=== PATIENT | female | born 1975 | race Caucasian/White ===

== ENCOUNTER → 2016-08-24 | Outpatient (CLI) | payer OTHER ==
--- NOTE | 2016-08-24 13:07 | MA ---
Screening Digital Mammogram With iCAD Analysis Clinical Indications: Routine screening. Technique: Standard cephalocaudal projections are obtained. Digital breast tomosynthesis was performe d in the MLO projection with reconstruction at 1.0 mm slice thickness and composite MLO views reconst ructed. This examination is processed by the iCAD computer aided detection system. Comparison: Baseline study; no previous mammograms have been performed. Breast density: Type B; Scattered fibroglandular densities. Findings: CAD was reviewed. No masses, suspicious calcifications or secondary signs of malignancy are seen. Impression: Negative mammogram. BI-RADS 1. Recommendation: Routine mammographic screening in one year as long as physical examination is negativ [facility]. Negative mammography should not preclude additional workup of a clinically suspicious finding. The patient's information is entered into a reminder system with a target due date for her next mammo gram.
== END ==
LOC: FIMAGING 10:40
DX: Z12.31 Encounter for screening mammogram for malignant neoplasm of breast (principal)
CPT/HCPCS: G0202

== ENCOUNTER 2017-05-27 16:32 | Observation (INO) | payer OTHER ==
--- NOTE | 2017-05-27 16:51 | EDPHY ---
HPI/HX/ROS/PE/MDM Narrative: CHIEF COMPLAINT: HISTORY OF PRESENT ILLNESS: This patient is a 41 year old female arriving with her complaining of severe abdominal pain onset around 3pm this afternoon. Over the past several months she has noted pains in the area of her left ovary which are not associated with her usual discomfort in her menstrual cycle. 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 She was evaluated by the physician's hospital medical assistant, and had a negative test but was noted to have high blood pressure. She was scheduled for outpatient ultrasound on 06/08 for follow up. Today at 3: 00pm, her pain returned sharply and suddenly following a small episode of diarrhea. Her pain is localized primarily to her lower left quadrant, but radiates across to the right. She endorses associated nausea, but has not vomited. She has also been intermittently dizzy over the last few days. No fever , chills, chest pain, shortness of breath, palpitations, vomiting, urinary complaints, headache. REVIEW OF SYSTEMS: Aside from elements discussed in the HPI, a comprehensive 10-point review of systems was reviewed and is negative. PAST MEDICAL HISTORY: 1. Cesarian sections 2. Hemorrhagic cysts 3. SVT Previously on Lovenox following the of her sons. SOCIAL HISTORY: . at bedside. TECHNOLOGY SUPPORT ANALYST Dr. Guillen VITAL SIGNS: Reviewed by me GENERAL: Well-developed, well-nourished, appears uncomfortable, curled on her side. HEENT: Atraumatic. Eyes: No icterus, no injection. Mouth: moist mucous membranes. No erythema or lesions. Neck: supple with no adenopathy. LUNGS: Clear to auscultation bilaterally, no wheezes, rhonchi or rales. CARDIAC: Regular rate and rhythm, no rubs, murmurs or gallops. ABDOMEN:Exquisite lower quadrant tenderness, greater on the left. Soft, nondistended, bowel sounds normal. BACK: No CVA tenderness. EXTREMITIES: No trauma. No edema. Range of motion is normal throughout. NEURO: Alert and oriented, grossly nonfocal. SKIN: Warm and dry, no rash. PSYCHIATRIC: Normal mentation, no agitation. Portions of this note were transcribed by a biomedical instrument technician. I personally performed a history, physical exam, medical decision making, and confirmed accuracy of information the transcribed note. ED Course: 41 year old female presents with left-sided abdominal pain onset around 3pm this afternoon. Plan for ultrasound, and pain medications 1mg IV Dilaudid, 4mg IV Zofran. 18:[address] Barroso radiologist. Ovary on right and uterus okay. Left ovary not definitively visualized. In the area of the left adnexa there is a soft tissue structure with ring of cystic lesions. No flow to this particular structure differential includes TOA? Bowel related? Dr. Barroso recommends CT scan for further delineation. Reassessed. Patient remains quite uncomfortable. She was treated with additional Dilaudid. She is also quite anxious and received Ativan. Patient reports an allergy to shellfish. She has proceed been premedicated prior to receiving IV contrast. Patient received Solu-Medrol and Benadryl. CT scan with IV contrast was then obtained. CT scan reveals hyperdense fluid in the pelvis presumably blood. Left ovary not significantly enlarged. No tubo-ovarian abscess. Ultrasound was repeated in an attempt to visualize the left ovary and document flow. Repeat ultrasound still unable evaluate the left ovary. Patient's course has been previously discussed with Dr. Guillen. Patient will be admitted to the hospital for further evaluation of her pelvic discomfort, continue to evaluate for potential ovarian torsion, treat for potential hemorrhagic cysts, and close monitoring. MDM: The differential diagnosis for the patient's abdominal pain was considered including but not limited to ovarian cyst, pelvic inflammatory disease, ovarian torsion, urinary tract infection, related complications, and appendicitis. - Data Points Imaging Results: Imaging Impressions Pelvic/Renal Ultrasound 05/27/17 17:07 Impression: 1. Normal uterus and right ovary. 2. Indeterminate visualization of the left ovary. There is an obscured left adnexal structure that correlates to location of extensive pain, that does not show much vascular flow. Differential includes torsed ovary, tuboovarian abscess , or other pelvic structure not related to ovary. CT scan is suggested for further interrogation. Findings and recommendations discussed with Andie Haro MD, at 1911 hours, 05/27/2017. Final report concurs with initial preliminary interpretation. Abdomen CT 05/27/17 18:41 Impression: 1. Dense pelvic free fluid and perihepatic free fluid. One of the differentials would be ruptured hemorrhagic ovarian cyst, with subsequent Kdda-Vhxw-Sfsnhg syndrome. Does this patient have right upper quadrant pain? 2. Normal appearance of ovaries by CT standard, without tubo-ovarian abscess. 3. We will bring the patient back for repeat limited left adnexal pelvic ultrasound specifically looking for color flow in the left ovary. 4. Otherwise, normal CT scan of the abdomen and pelvis. Findings and recommendations discussed with Andie Haro MD at 2100 hour, 05/27/2017. Final report concurs with initial preliminary interpretation. Laboratory Results: Laboratory Results 05/27/17 16:45 05/27/17 16:45 05/27/17 05/27/17 05/27/17 16:45 16:45 16:45 WBC 8.36 10^3/uL 10^3/uL (3.80-9.50) RBC 4.88 10^6/uL 10^6/uL (4.18-5.33) Hgb 14.9 g/dL g/dL (12.6-16.3) POC Hgb Hct 44.6 % % (38.0-47.0) POC Hct MCV 91.4 fL fL (81.5-99.8) MCH 30.5 pg pg (27.9-34.1) MCHC 33.4 g/dL g/dL (32.4-36.7) RDW 13.2 % % (11.5-15.2) Plt Count 272 10^3/uL 10^3/uL (150-400) MPV 9.9 fL fL (8.7-11.7) Neut % (Auto) 64.5 % % (39.3-74.2) Lymph % (Auto) 28.1 % % (15.0-45.0) [place]y % (Auto) 5.9 % % (4.5-13.0) Eos % (Auto) 0.7 % % (0.6-7.6) Baso % (Auto) 0.4 % % (0.3-1.7) Nucleat RBC Rel Count 0.0 % % (0.0-0.2) Absolute Neuts (auto) 5.40 10^3/uL 10^3/uL (1.70-6.50) Absolute Lymphs (auto) 2.35 10^3/uL 10^3/uL (1.00-3.00) Absolute Monos (auto) 0.49 10^3/uL 10^3/uL (0.30-0.80) Absolute Eos (auto) 0.06 10^3/uL 10^3/uL (0.03-0.40) Absolute Basos (auto) 0.03 10^3/uL 10^3/uL (0.02-0.10) Absolute Nucleated RBC 0.00 10^3/uL 10^3/uL (0-0.01) Immature Gran % 0.4 % % (0.0-1.1) Immature Gran # 0.03 10^3/uL 10^3/uL (0.00-0.10) POC Sodium Sodium 139 mEq/L mEq/L (134-144) POC Potassium Potassium 4.1 mEq/L mEq/L (3.5-5.2) POC Chloride Chloride 100 mEq/L mEq/L (97-110) Carbon Dioxide 25 mEq/l mEq/l (22-31) Anion Gap 14 mEq/L mEq/L (8-16) POC BUN BUN 10 mg/dL mg/dL (7-23) Creatinine 0.7 mg/dL mg/dL (0.6-1.0) POC Creatinine Estimated GFR > 60 Glucose 89 mg/dL mg/dL (70-100) POC Glucose Calcium 10.3 mg/dL mg/dL (8.5-10.4) Beta HCG, Qual NEGATIVE 05/27/17 16:39 WBC RBC Hgb POC Hgb 16.3 gm/dL gm/dL (12.6-16.3) Hct POC Hct 48 % H % (38-47) MCV MCH MCHC RDW Plt Count MPV Neut % (Auto) Lymph % (Auto) [place] % (Auto) Eos % (Auto) Baso % (Auto) Nucleat RBC Rel Count Absolute Neuts (auto) Absolute Lymphs (auto) Absolute Monos (auto) Absolute Eos (auto) Absolute Basos (auto) Absolute Nucleated RBC Immature Gran % Immature Gran # POC Sodium 140 mEq/L mEq/L (134-144) Sodium POC Potassium 3.7 mEq/L mEq/L (3.3-5.0) Potassium POC Chloride 101 mEq/L mEq/L (97-110) Chloride Carbon Dioxide Anion Gap POC BUN 9 mg/dL mg/dL (7-23) BUN Creatinine POC Creatinine 0.7 mg/dL mg/dL (0.6-1.0) Estimated GFR Glucose POC Glucose 91 mg/dL mg/dL (70-100) Calcium Beta HCG, Qual Medications Given: Discontinued Medications Diphenhydramine HCl (Benadryl Injection) 50 mg IVP EDNOW ONE Stop: 05/27/17 19:18 Last Admin: 05/27/17 19:19 Dose: 50 mg Hydromorphone HCl (Dilaudid) 1 mg IVP EDNOW ONE Stop: 05/27/17 17:22 Last Admin: 05/27/17 18:00 Dose: 1 mg Hydromorphone HCl (Dilaudid) 0.5 mg IVP EDNOW ONE Stop: 05/27/17 17:56 Last Admin: 05/27/17 18:00 Dose: 0.5 mg Sodium Chloride (Ns) 1,000 mls @ 0 mls/hr IV ONCE ONE; Wide Open PRN Reason: Protocol Stop: 05/27/17 17:08 Last Admin: 05/27/17 17:19 Dose: 1,000 mls Ketorolac Tromethamine (Toradol) 30 mg IVP EDNOW ONE Stop: 05/27/17 21:01 Last Admin: 05/27/17 22:18 Dose: Not Given Lorazepam (Ativan Injection) 1 mg IVP EDNOW ONE Stop: 05/27/17 18:52 Last Admin: 05/27/17 18:54 Dose: 1 mg Methylprednisolone Sodium Succinate (Solu-Medrol) 125 mg IVP EDNOW ONE Stop: 05/27/17 19:18 Last Admin: 05/27/17 19:19 Dose: 125 mg Ondansetron HCl (Zofran) 4 mg IVP EDNOW ONE Stop: 05/27/17 17:08 Last Admin: 05/27/17 17:18 Dose: 4 mg Point of Care Test Results: 05/27/17 16:39 POC Sodium 140 POC Potassium 3.7 POC Chloride 101 POC BUN 9 POC Creatinine 0.7 POC Glucose 91 General Time Seen by Provider: 05/27/17 16:41 Initial Vital Signs: Initial Vital Signs Temperature (C) 36.7 C 05/27/17 16:34 Heart Rate 82 05/27/17 16:34 Respiratory Rate 20 05/27/17 16:34 Blood Pressure 139/72 H 05/27/17 16:34 O2 Sat (%) 100 05/27/17 16:34 O2 Delivery Mode Room Air O2 (L/minute) 2 Allergies/Adverse Reactions: banana Allergy (Verified 11/04/14 16:46) erythromycin base Allergy (Verified 11/04/14 16:46) shellfish derived Allergy (Verified 11/04/14 16:46) some narcotics Allergy (Uncoded 11/04/14 16:46) Home Medications: Medication Instructions Recorded Diazepam [Valium 5 MG (*)] 2.5 mg PO HS PRN 05/27/17 Levothyroxine Sodium 88 mcg PO DAILY 05/27/17 Departure - Departure Disposition: [facility] Inpatient Acute Clinical Impression: rule out ovarian torsion, Hemorrhagic cyst of left ovary, Pelvic pain Abdominal pain Qualifiers: Abdominal location: left lower quadrant Qualified Code(s): R10.32 - Left lower quadrant pain Condition: Fair Report Scribed for: Andie Haro Report Scribed by: Kassandra Bullard Date of Report: 05/27/17 Time of Report: 16:51
[2017-05-27] MEDS ORDERED: HYDROmorphONE/DILAUDID 1 MG/ML INJ ONE (17:06)
[2017-05-27] MEDS ORDERED: ONDANSETRON 4 MG/2 ML VIAL ONE (17:06)
[2017-05-27] MEDS ORDERED: ONDANSETRON 4 MG/2 ML VIAL IVP ONE (17:07)
[2017-05-27] MEDS ORDERED: NS 1,000 ML IV ONE (17:07)
[2017-05-27 17:18] LABS: PLATELET COUNT 272 10^3/uL (150-400)
[2017-05-27] MEDS ORDERED: HYDROmorphONE/DILAUDID 1 MG/ML INJ IVP ONE ×2 (17:21→17:55)
[2017-05-27] MEDS ORDERED: IOPAMIDOL (ISOVUE-300) 100 ML BTL ONE (18:48)
[2017-05-27] MEDS ORDERED: LORazepam 2 MG/ML INJ IVP ONE (18:51)
[2017-05-27] MEDS ORDERED: methylPREDNISolone SOD SUCC 125 MG/2 ML VIAL IVP ONE (19:17)
[2017-05-27] MEDS ORDERED: KETOROLAC 30 MG/1 ML SDV IVP ONE (21:00)
[2017-05-27] MEDS ORDERED: ONDANSETRON 4 MG/2 ML VIAL IVP PRN (23:19)
[2017-05-27] MEDS ORDERED: LR 1,000 ML IV SCH (23:30)
[2017-05-27] MEDS: KETOROLAC 15 MG/1 ML SDV IVP PRN (23:37)
[2017-05-28] MEDS: HYDROmorphONE/DILAUDID 2 MG/ML INJ IVP PRN ×2 (03:12→08:39)
[2017-05-28] MEDS: KETOROLAC 15 MG/1 ML SDV IVP PRN ×2 (05:58→12:09)
[2017-05-28] MEDS ORDERED: FLU VACC QS 2017-18 (3YR+)/PF 0.5 ML SYR (FLUARIX QUAD) IM ONE (08:08)
--- NOTE | 2017-05-28 10:30 | SOAPPROG ---
SOAP Progress Note Assessment/Plan: Assessment: pt feeling better ,likely dx is ruptured hemorrhagic cyst Plan: 05/28pt to be d/c home and will f/u in 2 weeks for repeat u/s , has pain meds at home and will call if needs other , precautions given Subjective: pain is less, mild nausea Objective: Vital Signs Temp Pulse Resp BP Pulse Ox 36.8 C 61 17 99/58 L 93 05/28/17 07:58 05/28/17 07:58 05/28/17 07:58 05/28/17 07:58 05/28/17 07:58 Laboratory Results 05/28/17 06:05 05/27/17 05/28/17 05/29/17 05:59 05:59 05:59 Intake Total 1000 Balance 1000 abd soft , mild guarding decreased bowel sounds ICD10 Worksheet Patient Problems: Problems Problem Status Onset Abdominal pain Acute Hemorrhagic cyst of left ovary Acute Pelvic pain Acute
[2017-05-28] MEDS ORDERED: ONDANSETRON DISINTEGRATING 4 MG TAB PO PRN (10:37)
[2017-05-28 11:30] VITALS: BP 104/64; PULSE 79; RESP 16; TEMP 97; O2SAT 94
== END 2017-05-28 14:00 | disposition home or self-care (01) ==
LOC: FOB 21:54
PROVIDERS: ADMIT Obstetrics & Gynecology Gynecology; ATTEND Obstetrics & Gynecology Gynecology
DX: N83.202 Unspecified ovarian cyst, left side (principal); R10.2 Pelvic and perineal pain; Z23 Encounter for immunization
CPT/HCPCS: 74177; 76856; 76857; 90471; G0378; 82947-QW; 96374; G0008; J1170; J1200; J1885; J2060; J2405; J2930; Q9967

== ENCOUNTER → 2018-11-23 | Outpatient (CLI) | payer OTHER | LOC: FIMAGING 08:40 | PROVIDERS: ATTEND Obstetrics & Gynecology Gynecology | DX: Z12.31 Encounter for screening mammogram for malignant neoplasm of breast (principal) ==